=== PATIENT | female | born 1995 | race Caucasian/White ===

== ENCOUNTER 2016-05-04 18:09 | Emergency (ER) | payer BC ==
[2016-05-04 18:23] VITALS: BP 125/69
[2016-05-04] MEDS ORDERED: Phenazopyridine TAB* 100 MG PO ONE (18:56)
--- NOTE | 2016-05-04 19:16 | UC ---
Complaint Female HPI - HPI Summary HPI Summary: ONE DAY OF BLADDER DISCOMFORT, BURNING WITH URINATION. NO ABDOMINALPAIN. NO BACK PAIN. NO FEVER. NO CHANGES IN SEXUAL PARTNER HAS BEEN MONOGAMOUS WITH SAME PARTNER FOR 1.5 YEARS. NO VAGINAL DISCHARGE. NO ITCHING NO LESIONS. PATIENT IS IN A HURRY TO LEAVE. - History Of Current Complaint Chief Complaint: [facility] Stated Complaint: UNCOMFORTABLE URINATION Time Seen by Provider: 05/04/16 18:13 Hx Obtained From: Patient Onset/Duration: Gradual Onset Timing: Intermittent, Lasting Minutes Severity Initially: Mild Severity Currently: Mild Character: Dull, Burning Associated Signs And Symptoms: Negative: Back Pain, Vaginal Bleeding/Discharge, Vaginal Discharge, Nausea, Vomiting(# Of Episodes =), Genital Blisters - Risk Factors Ovarian Torsion Risk Factor: Reproductive Age - Allergies/Home Medications Allergies/Adverse Reactions: Allergies Allergy/AdvReac Type Severity Reaction Status Date / Time No Known Allergies Allergy Verified 05/04/16 18:15 Home Medications: Home Medications Levonorgestrel (IUD) (NF) [Mirena (NF)] 05/04/16 [History] PMH/Surg Hx/FS Hx/Imm Hx Previously Healthy: Yes - Surgical History Surgical History: Yes Surgery Procedure, Year, and Place: [place] teeth. LEFT ACL - Family History Known Family History: Negative: Renal Disease, Blood Disorder - Social History Occupation: Student Lives: With Family Alcohol Use: Rare Substance Use Type: None Smoking Status (MU): Never Smoked Tobacco Review of Systems Constitutional: Negative Skin: Negative Eyes: Negative ENT: Negative Respiratory: Negative Cardiovascular: Negative Gastrointestinal: Negative Genitourinary: Dysuria, Frequency, Urgency Motor: Negative Neurovascular: Negative Musculoskeletal: Negative Neurological: Negative Psychological: Negative All Other Systems Reviewed And Are Negative: Yes Physical Exam Triage Information Reviewed: Yes Appearance: Well-Appearing, No Pain Distress, Well-Nourished Vital Signs: Initial Vital Signs Temp 98.8 F 05/04/16 18:17 Pulse 79 05/04/16 18:17 Resp 18 05/04/16 18:17 BP 125/69 05/04/16 18:17 Pulse Ox 99 05/04/16 18:17 Vital Signs Reviewed: Yes Eye Exam: Normal Eyes: Positive: Conjunctiva Clear ENT Exam: Normal ENT: Positive: Normal ENT inspection, Hearing grossly normal, Pharynx normal, TMs normal Dental Exam: Normal Neck exam: Normal Respiratory Exam: Normal Respiratory: Positive: Chest non-tender, Lungs clear, Normal breath sounds, No respiratory distress Cardiovascular Exam: Normal Cardiovascular: Positive: RRR, No Murmur Abdominal Exam: Normal Abdomen Description: Positive: Nontender, No Organomegaly. Negative: CVA Tenderness (R), CVA Tenderness (L) Musculoskeletal Exam: Normal Neurological Exam: Normal Psychological Exam: Normal Skin Exam: Normal - Additional Comments PELVIC EXAM DEFERRED BY PATINET; IN A HURRY NEEDED TO LEAVE BY 7PM. Complaint Female Dx - Differential Dx/Diagnosis Differential Diagnosis/HQI/PQRI: Cervicitis, Ovarian Cyst, , Sexually Transmitted Disease, Ureteral Stone, Urinary Tract Infection, Other - URETHRITIS , Provider Diagnoses: DYSURIA Discharge - Discharge Plan Condition: Stable Disposition: HOME Prescriptions: Phenazopyridine TAB* [Pyridium TAB*] 100 mg PO TID #15 tab Patient Education Materials: Dysuria (ED) Referrals: Sadi Cleveland DO [Primary Care Provider] -
== END 2016-05-04 19:00 | disposition home or self-care (01) ==
LOC: UCEAST 18:09
DX: R30.0 Dysuria (principal)
CPT/HCPCS: 81002; 81025; 87086; 99212; A9270-GY; G0463